=== PATIENT | male | born 1970 | race American Indian/Alaskan Native ===

== ENCOUNTER 2016-07-17 10:57 | Outpatient (CLI) | payer OTHER ==
[2016-07-17] MEDS ORDERED: PROVENTIL IH ONE (11:04)
--- NOTE | 2016-07-17 12:40 | XRay Report ---
LUMBOSACRAL SPINE, 3 VIEWS: History: Back pain Findings: The vertebral bodies, disk spaces and posterior elements are intact. No compression deformity or malalignment. The SI joints are symmetric and unremarkable. Impression: Unremarkable lumbar spine films.
--- NOTE | 2016-07-17 12:40 | XRay Report ---
RIGHT KNEE RADIOGRAPHS INDICATION: Right knee pain. COMPARISON: None similar. FINDINGS: AP and lateral right knee radiographs demonstrate intact articulation. Mild patellar inferior pole spurring and superior patellar enthesophyte. No suprapatellar effusion. CONCLUSION: No acute right knee radiographic abnormality, as described. Thank you for the opportunity to participate in this patient's care.
--- NOTE | 2016-07-18 16:47 | XRay Report ---
Right foot: AP and lateral projections demonstrate varus angulation of the digits. The joints are aligned and well preserved otherwise. The bones are well-mineralized. No destructive lesions. No soft tissue swelling. Impression: No acute finding.
== END 2016-07-17 10:58 | disposition home or self-care (01) ==
LOC: PF 10:57
PROVIDERS: ATTEND Internal Medicine
DX: Z02.71 Encounter for disability determination (principal); M17.0 Bilateral primary osteoarthritis of knee; J45.909 Unspecified asthma, uncomplicated
CPT/HCPCS: 72100